=== PATIENT | female | born 1950 | race Two or more races ===

== ENCOUNTER 2023-07-12 04:20 | Day surgery (SDC) | payer OTHER ==
[~2023-07-12] VITALS: Ht 152.4 cm; Wt 45.4 kg
[~2023-07-12 04:20] MED LIST: CHILDREN'S ASPI81 MG PO; FOLIC ACID0.8 M1 PO; LEVO-T50 MCG PO; LIPITOR20 MG PO; METFORMIN HCL850 MG; OMEGA-31000 MG PO; RALOXIFENE HCL60 MG PO; VASOTEC2.5 MG PO
[2023-07-12] MEDS ORDERED: METRONIDAZOLE/SODIUM CHLORIDE 500 MG/100 ML PIGGYBACK IV ONE (07:09)
[2023-07-12] MEDS ORDERED: CEFTRIAXONE SODIUM 2,000 MG VIAL ONE (07:09)
[2023-07-12] MEDS ORDERED: DIBUCAINE 30 GM TUBE ONE (07:32)
[2023-07-12] MEDS ORDERED: LIDOCAINE HCL 1%/Epi 20ML VIAL IJ ONE ×2 (07:32→08:30)
[2023-07-12] MEDS ORDERED: HEMOSTATIC MATRIX 1 KIT KIT TOP ONE ×3 (07:32→08:30)
[2023-07-12] MEDS ORDERED: BUPIVACAINE HCL/PF 0.5% 30ML ML ONE (07:32)
[2023-07-12] MEDS ORDERED: POVIDONE-IODINE 118 ML BOTT TOP ONE (07:33)
[2023-07-12] MEDS ORDERED: BUPIVACAINE LIPOSOME/PF 266 MG/20 ML VIAL IJ ONE (08:14)
[2023-07-12] MEDS ORDERED: BUPIVACAINE HCL/PF 0.5% 30ML ML IU ONE (08:30)
[2023-07-12] MEDS ORDERED: CEFTRIAXONE SODIUM 2,000 MG in 0.9 % SODIUM CHLORIDE 50 ML IV ONE (08:30)
[2023-07-12] MEDS ORDERED: METRONIDAZOLE/SODIUM CHLORIDE 200 ML IV ONE (08:30)
[2023-07-12] MEDS ORDERED: POVIDONE-IODINE 118 ML BOTT TP ONE (08:30)
[2023-07-12] MEDS ORDERED: DIBUCAINE 30 GM TUBE RC ONE (08:30)
[2023-07-12] MEDS ORDERED: TAMSULOSIN HCL 0.4 MG CAP PO ONE ×2 (09:15→11:05)
[2023-07-12] MEDS ORDERED: OXYC1TAB9 PO (09:17)
== END 2023-07-12 13:50 | disposition home or self-care (01) ==
LOC: CIR.AMB 04:20
PROVIDERS: ATTEND Surgery
DX: K64.2 Third degree hemorrhoids (principal); K64.4 Residual hemorrhoidal skin tags; K64.8 Other hemorrhoids; Z88.8 Allergy status to other drugs, medicaments and biological substances; E78.5 Hyperlipidemia, unspecified; E03.9 Hypothyroidism, unspecified; I10 Essential (primary) hypertension; Z20.822 Contact with and (suspected) exposure to COVID-19

== ENCOUNTER 2023-07-17 10:44 | Emergency (ER) | payer OTHER ==
[~2023-07-17] VITALS: Ht 152.4 cm; Wt 64.0 kg
[~2023-07-17 10:44] MED LIST changes: +OXYC1TAB9 PO
[2023-07-17] MEDS ORDERED: KETO10TA2 PO (12:14)
[2023-07-17] MEDS ORDERED: KETOROLAC TROMETHAMINE 30 MG VIAL IM ONE (12:15)
== END 2023-07-17 12:55 | disposition home or self-care (01) ==
LOC: ER 10:44
DX: G89.18 Other acute postprocedural pain (principal); Z98.890 Other specified postprocedural states; Z88.8 Allergy status to other drugs, medicaments and biological substances; I10 Essential (primary) hypertension; E03.9 Hypothyroidism, unspecified; E78.00 Pure hypercholesterolemia, unspecified; E11.9 Type 2 diabetes mellitus without complications; Z79.84 Long term (current) use of oral hypoglycemic drugs